=== PATIENT | male | born 2000 | race Two or more races ===

== ENCOUNTER → 2025-01-16 | Emergency (ER) | payer OTHER ==
[~2025-01-16] VITALS: Ht 177.8 cm; Wt 74.8 kg
[~2025-01-16] MED LIST: ACETAMINOPHEN 500 MG GEL..CAP PO ONE; HORIZANT300 MG PO
== END | disposition left against medical advice (07) ==
LOC: ER 15:31
DX: S09.8XXA Other specified injuries of head, initial encounter (principal); V00.141A Fall from scooter (nonmotorized), initial encounter; Y93.I9 Activity, other involving external motion; Y92.413 State road as the place of occurrence of the external cause; Z88.2 Allergy status to sulfonamides